=== PATIENT | male | born 1935 | race Caucasian/White ===

== ENCOUNTER 2018-11-25 00:35 | Inpatient (IN) ==
--- NOTE | 2018-11-19 08:10 | EKG Report ---
Test Performed on : 11/19/2018 07:53:45 AM Test Reason : PAT Blood Pressure : / mmHG Vent. Rate : 073 BPM Atrial Rate : 073 BPM P-R Int : 178 ms QRS Dur : 076 ms QT Int : 384 ms P-R-T Axes : 070 -06 051 degrees QTc Int : 423 ms Normal sinus rhythm. Septal infarct , age undetermined Abnormal ECG No previous ECGs available Unconfirmed Result
[2018-11-19 08:12] LABS: URINE SOURCE CLEAN CATCH
[2018-11-19 08:16] LABS: BASO# 0.05 X1000 (0.0-0.2); BASO% 0.6 % (0.0-0.8); BILIRUBIN URINE NEGATIVE (NEGATIVE); BLOOD URINE NEGATIVE (NEGATIVE); COLOR YELLOW; EOS# 0.58 X1000 (0.0-0.7); GLUCOSE URINE NEGATIVE (NEGATIVE); HEMATOCRIT 44.6 % (42.0-52.0); IMM GRAN# 0.02 X1000 (0.0-0.04); IMM GRAN% 0.2 % (0.0-0.5); KETONE URINE NEGATIVE (NEGATIVE); LEUKOCYTES URINE NEGATIVE (NEGATIVE); LYMPH# 1.98 X1000 (1.2-3.4); MCH 28.1 PG (27-31); MCHC 31.4 g/dL (33-37); MCV 89.6 FL (81-99); MONO# 1.14 X1000 (0.11-0.59); MONO% 13.8 % (1.7-9.3); MPV 11.3 FL (7.4-10.4); NEUT# 4.49 X1000 (1.4-6.5); NEUT% 54.4 % (42.2-75.2); NITRITE URINE NEGATIVE (NEGATIVE); PH URINE 6.5; PLT 174 X1000 (130-400); PROTEIN URINE TRACE mg/dL (NEGATIVE); RBC 4.98 XMIL (4.7-6.1); RDW 14.3 % (11.5-14.5); SP GRAVITY URINE 1.018; TURBIDITY URINE CLEAR (CLEAR); UROBILINOGEN URINE NORMAL (NORMAL); WBC 8.26 X1000 (4.8-10.8)
[2018-11-19 08:17] LABS: UR EPITHELIAL CELLS <10 /HPF (<10); URINE BACTERIA NEGATIVE /HPF; URINE RBC <10 /HPF (<10); URINE WBC <10 /HPF (<10)
[2018-11-19 08:23] LABS: INR 0.9; PROTIME 12.9 Seconds (11.0-16.0)
[2018-11-19 08:24] LABS: PTT 27.5 Seconds (22.3-41.8)
[2018-11-19 08:35] LABS: AGAP 9; BUN 19 mg/dL (8-22); CALCIUM 9.8 mg/dL (8.8-10.2); CHLORIDE 102 mmol/L (98-107); COSMO 280; CREATININE 1.1 mg/dL (0.7-1.2); ESTIMATED GFR > 60; GLUCOSE 95 mg/dL (70-104); POTASSIUM 4.7 mmol/L (3.5-5.1); SODIUM 139 mmol/L (136-145); TCO2 28 mmol/L (25-35)
[2018-11-25] MEDS ORDERED: XYLOCAINE-MPF 2% ONE (07:41)
[2018-11-25] MEDS ORDERED: DIPRIVAN 1% ONE (07:41)
[2018-11-25] MEDS ORDERED: REGLAN ONE (09:36)
[2018-11-25] MEDS ORDERED: PEPCID ONE (09:36)
[2018-11-25] MEDS ORDERED: LYRICA ONE (09:36)
[2018-11-25] MEDS ORDERED: CELEBREX ONE (09:36)
[2018-11-25] MEDS ORDERED: COLACE ONE (09:36)
[2018-11-25] MEDS ORDERED: LR 1,000 ML ONE (09:37)
[2018-11-25] MEDS ORDERED: KEFZOL 2 GM/D5W 2 GM/50 ML IVPB ONE (09:37)
[2018-11-25] MEDS ORDERED: TORADOL ONE (10:58)
[2018-11-25] MEDS ORDERED: SODIUM CHLORIDE 0.9% ONE (10:58)
[2018-11-25] MEDS ORDERED: MARCAINE 0.25% PF ONE (10:58)
[2018-11-25] MEDS ORDERED: DURAMORPH ONE (10:58)
[2018-11-25] MEDS ORDERED: CYKLOKAPRON 1,000 MG/NS 1,000 MG/100 ML IVPB ONE (10:58)
[2018-11-25] MEDS ORDERED: EXPAREL 1.3% ONE (10:59)
[2018-11-25] MEDS ORDERED: NEOSPORIN G.U. IRRIGANT ONE (10:59)
[2018-11-25] MEDS ORDERED: ZOFRAN ONE ×2 (11:39→11:41)
[2018-11-25] MEDS ORDERED: DECADRON ONE (11:39)
[2018-11-25] MEDS ORDERED: OFIRMEV 1000 MG/ISOTONIC SOLN 1,000 MG/100 ML BOTTLE ONE ×2 (11:39→12:55)
[2018-11-25 12:14] LABS: URINE SOURCE CATH
[2018-11-25 12:20] LABS: BILIRUBIN URINE NEGATIVE (NEGATIVE); BLOOD URINE NEGATIVE (NEGATIVE); COLOR YELLOW; GLUCOSE URINE NEGATIVE (NEGATIVE); KETONE URINE NEGATIVE (NEGATIVE); LEUKOCYTES URINE NEGATIVE (NEGATIVE); NITRITE URINE NEGATIVE (NEGATIVE); PROTEIN URINE NEGATIVE (NEGATIVE); SP GRAVITY URINE 1.012; TURBIDITY URINE CLEAR (CLEAR); UROBILINOGEN URINE NORMAL (NORMAL)
[2018-11-25 12:27] LABS: UR EPITHELIAL CELLS >10 /HPF (<10); URINE BACTERIA NEGATIVE /HPF; URINE RBC <10 /HPF (<10); URINE WBC <10 /HPF (<10)
[2018-11-25] MEDS ORDERED: EPHEDRINE ONE (12:33)
[2018-11-25 12:49] LABS: URINE SMALL ROUND CELLS RENAL PRESENT
[2018-11-25] MEDS ORDERED: NS 1,000 ML ONE (13:25)
--- NOTE | 2018-11-25 13:39 | OPERATIVE NOTE ---
PROCEDURE DATE: 11/25/2018 PREOPERATIVE DIAGNOSIS: Degenerative joint disease, right hip. POSTOPERATIVE DIAGNOSIS: Degenerative joint disease, right hip. PROCEDURE PERFORMED: Right anterior total hip replacement. SURGEON: Jasper Evans MD. SOUND RANGING CREWMEMBER: Pedro Pollack. Mr Pollack was necessary for proper retraction and manipulation during the case. ANESTHESIA: General. COMPLICATION: None. PROCEDURE IN DETAIL: This 83-year-old male presents for right anterior hip replacement. Risks, benefits, and no guarantees were discussed, and the patient is willing to proceed. He was taken to the operating room and satisfactory anesthesia obtained. He was placed on the [place] table, and the right hip prepped and draped in usual sterile fashion. A time-out was taken to confirm operative site, procedure, and patient. An anterior approach to the right hip was undertaken with an incision starting 1 cm distal and lateral to the anterior superior iliac spine and carried roughly 10 to 12 cm over the anterolateral thigh. Dissection was carried down through the skin and subcutaneous fat to the fascia of the tensor fascia jen. This was split in line with the incision and blunt dissection along the inner membrane of the tensor undertaken down to the anterior hip capsule. Cobra retractors were placed over the superior and inferior aspect of the femoral neck and a femoral neck capsulotomy performed. Prior to resection of the femoral neck, C- arm was used to layne leg lengths with an AP pelvis referencing the lesser trochanters on both hips. With the retractors around the femoral neck, a femoral neck osteotomy was made and the femoral head removed. A very small Cobra retractor was placed directly on the anterior acetabular bone with care taken to place it directly on bone to allow retraction of the anterior structures, as well as visualization of the acetabulum. Sequential reaming up to a 53 reamer was undertaken. A [employer] SELF coated 54 outer diameter cup was then impacted in the acetabulum under fluoroscopic guidance in roughly 45 degrees of abduction and 10 to 15 degrees of anteversion. This had secure press-fit fixation. A 25 length screw was placed in the 12 o'clock position of the cup. A 0 degree 36 mm inner diameter polyethylene bearing was then placed into the cup and the liner cup and cup bone interface checked and noted to be stable. Traction was released off the leg and the leg externally rotated and extended to facilitate broaching of the proximal femur. Sequential broaching using the DePuy Actis broach system was undertaken up to a size 4 stem. This had good axial and rotational stability. Trial neck options revealed the best stability with the high offset neck with a +5 neck length to restore leg length and promote stability. After adequate trialing as well as fluoroscopic visualization of the proposed implant for proper fit and fill, the trial implant was removed. An Actis size 4 collared stem was impacted in the proximal femur with secure axial and rotational stability. A +5, 36 mm ceramic head ball was impacted onto this and the hip reduced. The C-arm was then used to verify denominational of leg lengths as well as proper fit and component geometry of the implants. The stability was assessed by externally rotating the leg up to 70 degrees and extending the hip to the floor without any anterior dislocation. The wound was then copiously irrigated with irrigant. The joint capsule was injected with Exparel for pain management and a Hemovac drain placed. The fascia of the tensor was closed with a running V-LOC, the subcutaneous with 2-0 Vicryl and the skin with skin jenny. Sterile dressings were placed over this, and the patient was recovered from anesthesia and transferred to the recovery room in stable condition. No intraoperative complications were noted. Instrument count and sponge count were correct at the time of closure. cc: Adrien Evans MD
[2018-11-25] MEDS ORDERED: OXY IR PO PRN ×2 (15:30)
[2018-11-25] MEDS ORDERED: ZOFRAN ODT PO PRN (15:30)
[2018-11-25] MEDS ORDERED: ZOFRAN IV PRN (15:30)
[2018-11-25] MEDS ORDERED: MORPHINE IV PRN ×3 (15:30)
--- NOTE | 2018-11-25 17:15 | PROGRESS NOTE ---
DATE: 11/25/2018 SUBJECTIVE: Mr. Lopez is seen status post right anterior hip replacement. He is comfortable at the present time. OBJECTIVE: Vital signs: Stable. Neurological: He is motor and sensory intact and able to extend the knee, flex the hip, flex the knee, and dorsiflex and plantar flex the foot and toes. Skin: The bandage is clean and dry. ASSESSMENT: He is stable at present time. PLAN: We will plan on mobilizing him and transferring him to rehabilitation later this week. cc: Adrien Evans MD
[2018-11-25] MEDS ORDERED: CYKLOKAPRON 1,000 MG in NS 100 ML IV ONE (17:40)
[2018-11-25] MEDS: NS 1,000 ML IV SCH (18:26)
[2018-11-25] MEDS: TYLENOL PO SCH ×2 (18:28→21:03)
[2018-11-25] MEDS: ULTRAM PO SCH ×2 (18:28→21:04)
[2018-11-25] MEDS: KEFZOL 2 GM/D5W 2 GM/50 ML IVPB IV SCH (19:32)
[2018-11-25] MEDS: MYCOSTATIN POWDER TOP SCH (19:45)
[2018-11-25] MEDS: PERIDEX MT SCH (21:03)
[2018-11-25] MEDS: COLACE PO SCH (21:04)
[2018-11-25] MEDS: CELEBREX PO SCH (21:04)
[2018-11-25] MEDS: PRAVACHOL PO SCH (21:04)
[2018-11-25] MEDS: LOPRESSOR PO SCH (21:04)
[2018-11-26] MEDS: ULTRAM PO SCH ×4 (03:24→20:57)
[2018-11-26] MEDS: KEFZOL 2 GM/D5W 2 GM/50 ML IVPB IV SCH (03:25)
[2018-11-26] MEDS: TYLENOL PO SCH ×4 (03:25→20:56)
[2018-11-26] MEDS: NS 1,000 ML IV SCH ×3 (03:25→17:54)
[2018-11-26 05:38] LABS: HEMATOCRIT 37.1 % (42.0-52.0); HEMOGLOBIN 11.4 g/dL (14.0-18.0)
[2018-11-26 05:51] LABS: CALCIUM 8.5 mg/dL (8.8-10.2); CREATININE 1.4 mg/dL (0.7-1.2); POTASSIUM 4.8 mmol/L (3.5-5.1)
--- NOTE | 2018-11-26 08:20 | PROGRESS NOTE ---
DATE: 11/26/2018 SUBJECTIVE DATA: Mr. Lopez is seen on postop day 1 of right total hip arthroplasty. He reports he is doing well. He reports his pain is under control. OBJECTIVE DATA: There is good sensation right lower extremity. There are good pedal pulses. There is good capillary refill. There is negative Homans sign. The patient is able to bend the knee and flex his quadriceps muscles without difficulty. ASSESSMENT: Degenerative joint disease right hip with total hip arthroplasty. PLAN: We will plan on discharging Mr. Lopez Saturday to [facility]. We will check back on him tomorrow to see how he is doing. Dictated by JANELL Pandey for Adrine Evans MD cc: JANELL Pandey MD
[2018-11-26] MEDS ORDERED: PRAVACHOL PO SCH (09:00)
[2018-11-26] MEDS: MYCOSTATIN POWDER TOP SCH ×2 (09:40→20:57)
[2018-11-26] MEDS: PEPCID PO SCH (09:41)
[2018-11-26] MEDS: THERA M PLUS PO SCH (09:41)
[2018-11-26] MEDS: ASPIRIN PO SCH (09:41)
[2018-11-26] MEDS: COLACE PO SCH ×2 (09:41→20:56)
[2018-11-26] MEDS: PERIDEX MT SCH ×2 (09:43→20:56)
[2018-11-26] MEDS: CELEBREX PO SCH ×2 (09:43→20:56)
[2018-11-26] MEDS: LOPRESSOR PO SCH ×2 (13:39→20:58)
--- NOTE | 2018-11-26 18:37 | Diag Imaging Result Doc PS360 ---
CHEST-PORTABLE - 11/26/2018 INDICATION: REHAB PLACEMENT COMPARISON: None FINDINGS: The lungs are clear. Heart size is normal. No pneumothorax or pleural effusion. There are calcified granulomas in the left upper lobe. There are surgical clips in the soft tissues at the left side of the neck. IMPRESSION: Negative exam. Electronically signed by Eddi Wang 11/26/2018 6:34 PM
[2018-11-26] MEDS: PRAVACHOL PO SCH (20:57)
[2018-11-27] MEDS: ULTRAM PO SCH ×4 (04:29→21:08)
[2018-11-27] MEDS: TYLENOL PO SCH ×4 (04:29→21:08)
[2018-11-27 05:56] LABS: HEMATOCRIT 31.2 % (42.0-52.0); HEMOGLOBIN 9.7 g/dL (14.0-18.0)
[2018-11-27] MEDS: ASPIRIN PO SCH (09:09)
[2018-11-27] MEDS: MYCOSTATIN POWDER TOP SCH ×2 (09:10→21:09)
[2018-11-27] MEDS: PERIDEX MT SCH ×2 (09:10→21:09)
[2018-11-27] MEDS: THERA M PLUS PO SCH (09:10)
[2018-11-27] MEDS: COLACE PO SCH ×2 (09:10→21:08)
[2018-11-27] MEDS: PEPCID PO SCH (09:10)
[2018-11-27] MEDS ORDERED: MILK OF MAGNESIA PO PRN (09:12)
[2018-11-27] MEDS: CELEBREX PO SCH ×2 (09:20→21:09)
--- NOTE | 2018-11-27 10:44 | PROGRESS NOTE ---
DATE: 11/27/2018 SUBJECTIVE DATA: Mr. Lopez is on postoperative day 2 of his right total hip replacement. He reports doing well. He reports his pain is under control, and he only has some soreness in that right lower extremity. He reports he is still awaiting bed placement for rehabilitation. OBJECTIVE DATA: There is good sensation of the right lower extremity. There are good pedal pulses. There is good capillary refill. There is negative Mary's sign. There is good range of motion of the knee. There is good range of motion of the hip. There is good strength about the quadriceps muscles. There is good sensation. There is no redness or obvious signs of infection. The bandage is clean and dry. ASSESSMENT: Degenerative joint disease (DJD), right hip, with total hip arthroplasty. PLAN: We will plan on sending Mr. Lopez home tomorrow to rehabilitation. We will check back on him in the morning and get his discharge stuff ready. Dictated by JANELL Pandey for Adrien Evans MD cc: JANELL Pandey MD
[2018-11-27] MEDS: LOPRESSOR PO SCH ×2 (11:46→21:09)
[2018-11-27] MEDS: NS 1,000 ML IV SCH ×2 (14:33→20:58)
[2018-11-27] MEDS: PRAVACHOL PO SCH (21:09)
[2018-11-28] MEDS: TYLENOL PO SCH ×2 (03:20→08:33)
[2018-11-28] MEDS: ULTRAM PO SCH ×3 (03:20→11:22)
[2018-11-28 06:16] LABS: HEMATOCRIT 33.5 % (42.0-52.0); HEMOGLOBIN 10.2 g/dL (14.0-18.0)
[2018-11-28] MEDS ORDERED: FLEET ENEMA PR PRN (07:11)
[2018-11-28] MEDS ORDERED: CITRATE OF MAGNESIA PO ONE (07:13)
[2018-11-28] MEDS: THERA M PLUS PO SCH (08:33)
[2018-11-28] MEDS: ASPIRIN PO SCH (08:33)
[2018-11-28] MEDS: PEPCID PO SCH (08:33)
[2018-11-28] MEDS: COLACE PO SCH (08:34)
[2018-11-28] MEDS: CELEBREX PO SCH (08:34)
[2018-11-28] MEDS: LOPRESSOR PO SCH (08:34)
[2018-11-28] MEDS: PERIDEX MT SCH (08:35)
[2018-11-28] MEDS: MYCOSTATIN POWDER TOP SCH (08:40)
[2018-11-28] MEDS ORDERED: MIRALAX PO SCH (09:00)
--- NOTE | 2018-11-28 10:17 | Diag Imaging Result Doc PS360 ---
KUB ABDOMEN - 11/28/2018 INDICATION: Constipation COMPARISON: None FINDINGS: There is mild constipation of the ascending colon. No bowel obstruction or free air. There is a right hip prosthesis in good position. IMPRESSION: Mild constipation. Electronically signed by Eddi Wang 11/28/2018 10:14 AM
--- NOTE | 2018-11-28 10:18 | DISCHARGE SUMMARY ---
ADMISSION DATE: 11/25/2018 DISCHARGE DATE: 11/28/2018 ADMITTING DIAGNOSIS: Degenerative joint disease of the right hip. DISCHARGE DIAGNOSIS: Degenerative joint disease of the right hip. PRINCIPLE PROCEDURE: A right total hip arthroplasty. PAST MEDICAL HISTORY: High blood pressure and high cholesterol. DISCHARGE MEDICATIONS: Include [place] 10 for pain, aspirin 325 mg twice daily for DVT prophylaxis, MiraLAX for constipation, doxycycline for antibiotic coverage, and his routine home medications. PAST SURGICAL HISTORY: Back and neck surgery and right hip surgery. ALLERGIES: He has no known drug allergies. HOSPITAL COURSE: The patient was taken to the operating room on 11/25/2018. He underwent a right total hip arthroplasty. He tolerated the procedure well. He was transferred to the recovery room. He did well in recovery and was transferred to the surgical floor. Mechanical and DVT prophylaxes were initiated. Routine postoperative antibiotics were administered. The drain was discontinued on postoperative day 2 with about 75 mL of drainage. Physical therapy was initiated. The patient walked approximately 150 feet without difficulty. He was able to spontaneously void. He reported some constipation during his stay. He reports his last bowel movement was Saturday night. He transitioned to oral pain medication. His incision remained clean, dry, and intact during the hospital course. At this time, his abdomen is not distended. It is soft and nontender. There is good range of motion to the right hip. The incision is clean and dry. There is a negative Homans sign. The patient is able to flex his quadriceps muscles without difficulty. There is good pedal pulses. We will obtain an abdominal KUB x-ray to rule out any bowel obstruction. If this is negative, we will discharge him home today on 11/28/2018. DISPOSITION: He will be discharged to rehab at this time. FOLLOWUP: He will follow up when he gets out of rehab with Dr. Evans's office. DISCHARGE INSTRUCTIONS: His instructions will be gone over with at discharge. We also went over these with the family, and all questions were answered. Dictated by JANELL Pandey for Adrien Evans MD cc: JANELL Pandey MD
[2018-11-28] MEDS: NS 1,000 ML IV SCH (11:17)
[2018-11-28 12:33] VITALS: BP 125/72
== END 2018-11-28 13:36 | DRG 470 ==
LOC: SURHOLD 00:35 → 4N 11:51
PROVIDERS: ADMIT Orthopaedic Surgery Adult Reconstructive Orthopaedic Surgery; ATTEND Orthopaedic Surgery Adult Reconstructive Orthopaedic Surgery
CPT/HCPCS: 71010; 71045; 74000; 74018; 76000; 80048; 81001; 85014; 85018; 85025; 85610; 85730; 86850; 86900; 86901; 88304; 88311; 93005; 93010; 94761; 94799; 97110; 97116; 97162; 97530; A9270; C9290; J0131; J0690; J1100; J1885; J2274; J2275; J2405; J7030; J7120; Q9974; S0020

== ENCOUNTER 2018-12-25 11:41 | Inpatient (IN) ==
[2018-12-25] MEDS ORDERED: ZOFRAN IV ONE (13:29)
[2018-12-25] MEDS ORDERED: MORPHINE IV ONE (13:29)
--- NOTE | 2018-12-25 13:34 | PROVIDER DOCUMENTATION ---
This chart was entered by Fabiana Romeo Scribe, acting as scribe for August Puente MD. HPI-Musculoskeletal Pain/Inj - GENERAL Chief Complaint: Hip Pain Stated Complaint: RIGHT HIP PAIN Time Seen by Provider: 12/25/18 12:09 Source: patient - HX OF PRESENT ILLNESS-MUSKULOSKELTAL Nature of Presenting Problem: Patient is a 83 year old male who presents to the ED via EMS with right hip pain. Patient states he thinks he has dislocated his prosthetic hip again. States this episode is the 4th time in 1 week. Denies falling. Quality of Pain: reports: aching Severity in ED: mild Onset/Duration: just prior to arrival Timing: still present Modifying Factors: improves with: nothing Any recent injury?: No Locality of Occurance: Home Similar Symptoms Previously?: Yes Recently seen or treated by another doctor?: Yes - HIP/PELVIS PAIN/INJURY Hip Pain Location: reports: hip (R) Pain Radiation: reports: no radiation Context / Method of Injury: reports: unknown Associated Symptoms: reports: denies symptoms - LOWER EXTREMITY PAIN/INJURY Lower Extremities Pain: hip: right Context / Method of Injury: reports: unknown Associated Symptoms: reports: denies symptoms Review of Systems - Adult - REVIEW OF SYSTEMS - ADULT Constitutional: reports: no symptoms reported. denies: chills, fever, fatique Eyes: reports: no symptoms reported Ears, Nose, Mouth & Throat: reports: no symptoms reported Cardiovascular: reports: no symptoms reported Respiratory: reports: no symptoms reported Gastrointestinal: reports: no symptoms reported. denies: diarrhea, nausea, vomiting Genitourinary: reports: no symptoms reported Musculoskeletal: reports: other (right hip pain). denies: back pain, neck pain Integumentary: reports: no symptoms reported Neurological: reports: no symptoms reported Psychiatric: reports: no symptoms reported Endocrine: reports: no symptoms reported Hematologic/Lymphatic: reports: no symptoms reported Allergic/Immunologic: reports: no symptoms reported All Other Systems: Reviewed and Negative Past History - Adult - PAST MEDICAL HISTORY-ADULT Review of Records: reports: Nursing Assessment Review, Medications Reviewed, Social history reviewed & non-contributory. Major Childhood Illnesses: reports: denies history Cardiovascular: reports: HTN, hyperlipidemia Respiratory: reports: denies history Gastrointestinal: reports: denies history Obstetrical/Gynecological: reports: denies history Genitourinary: reports: denies history Musculoskeletal: reports: denies history Neurological: reports: denies history Psychiatric: reports: denies history Endocrine/Immune: reports: denies history Other Conditions: reports: denies history - PRIOR SURGERIES/PROCEDURES Surgical/Procedure History: reports: recent surgery (November 25, 2017.), reviewed, not pertinent, cholecystectomy, tonsillectomy, joint replacement - IMMUNIZATION STATUS Childhood Immunizations: See Nurse Assessment Flu Vaccine: See Nurse Assessment - FAMILY HISTORY Family History: reviewed, not pertinent - SOCIAL HISTORY Smoking: denies Substance Use: denies Living Situation: family Physical Exam-Injury Related - Physical Exam-Injury Related Initial Vital Signs Reviewed: Yes General Appearance: alert, mild distress. negative: lethargic, slow to respond Respiratory: chest non-tender, lungs clear, normal breath sounds. negative: rhonchi, wheezing Cardiovascular: normal peripheral pulses, regular rate, rhythm. negative: tachycardia, systolic murmur Peripheral Pulses: dorsalis-pedis (R): 2+, dorsalis-pedis (L): 2+ Abdominal Exam: normal bowel sounds, non tender, soft. negative: guarding, rebound Extremity: deformity (right hip), tenderness (right hip), other (decrease ROM to right hip) Integumentary: normal color, warm/dry. negative: cyanosis, ecchymosis, erythema, jaundice Neurologic: grossly normal. negative: aphasia, facial droop Psych/Mental Status: normal mood/affect, oriented x 3. negative: paranoid, tearful Progress - PLAN OF CARE/RESULTS Progress/Plan/Lab Results: Vital Signs - 8 hr 12/25/18 12:41 Temperature 98.7 F Pulse Rate 60 Respiratory Rate 20 Blood Pressure 118/66 O2 Sat by Pulse Oximetry 98 Orders Category Date Time Status HIP 1 VIEW RIGHT [RAD] Stat Exams 12/25/18 13:23 Ordered XRAY PELVIS W/HIP 2-3VW RT [RAD] Stat Exams 12/25/18 13:27 Ordered BASIC METABOLIC PANEL [CHEM] Stat Lab 12/25/18 13:31 Ordered CBC WITH ELECTRONIC DIFF [HEME] Stat Lab 12/25/18 13:31 Ordered PROTIME WITH INR [COAG] Stat Lab 12/25/18 13:31 Ordered PTT [COAG] Stat Lab 12/25/18 13:31 Ordered URINALYSIS W/POSS RFLX CULT [URINALYSIS] Stat Lab 12/25/18 13:28 Uncollected Morphine Med 12/25/18 13:29 Discontinued 2 mg IV NOW ONE Ondansetron [Zofran] Med 12/25/18 13:29 Discontinued 4 mg IV NOW ONE Transfer/Admit Order [TRANSFER] Routine Transfer 12/25/18 13:30 Ordered 1325 - Dr. Puente consulted with Dr. Arenas about the patient. Dr. Arenas states admit patient and put in quick admit orders. - REASSESSMENT Reassessment #1 Time Reassessed: 13:20 Status: unchanged (DR ARENAS ADMITS, ASKS FOR INITIAL ORDERS WRITTEN.) - CONSULTS/PCP/HOSPITALIST Notification #1 *Consult/PCP/Hospitalist*: Dr. Amin Time Discussed: 12:26 Reason/Comments: Dr. Puente consulted with Dr. Amin about patient. Consult Disposition: other (Dr. Amin states he will call back.) #2 Consult: PA for Dr. Amin Time Discussed: 12:57 Reason/Comments: Dr. Puente consulted with Dr. Amin's PA about patient. Consult Disposition: other (states Dr. Evans will consulted on the patient and have hospitalist admit.) #3 Consult: JANELL Liriano for Hospitalist Time Discussed: 12:58 Reason/Comments: Dr. Puente consulted with Deandra about patient. Consult Disposition: other (Deandra states patient is a Dr. Arenas patient.) Departure - Departure Date of Disposition Decision: 12/25/18 Time of Disposition Decision: 12:58 DIAGNOSIS: Hip dislocation, right, Status post total hip replacement, right Disposition: ADMITTED INPATIENT 09 Certified Medical Emergency: Emergent Condition: Stable Referrals and Follow-Ups: Shania Reyes CRNP [Primary Care Provider] - - Critical Care Note This patient required my direct & personal management of CC.: No Attestation - Physician/ GRAHAM Attestation The physician spent face to face time with patient:: Yes Advanced Practice Provider documentation review:: Supervising physician onsite and consulted in the evaluation and care of this patient. The physician did have a face to face encounter with the patient. This chart was documented by the kevin [email or web address], (Fabiana Romeo Scribe) and accurately reflects the services I performed and decisions made by , August Puente MD, as attested by the provider's signature.
[2018-12-25 13:50] LABS: BASO# 0.04 X1000 (0.0-0.2); BASO% 0.5 % (0.0-0.8); EOS# 0.54 X1000 (0.0-0.7); EOS% 7.3 % (0.0-10.0); HEMATOCRIT 40.2 % (42.0-52.0); HEMOGLOBIN 12.3 g/dL (14.0-18.0); LYMPH# 1.45 X1000 (1.2-3.4); LYMPH% 19.5 % (20.5-51.1); MCH 28.2 PG (27-31); MCHC 30.6 g/dL (33-37); MCV 92.2 FL (81-99); MONO# 1.56 X1000 (0.11-0.59); MPV 11.7 FL (7.4-10.4); NEUT# 3.85 X1000 (1.4-6.5); NEUT% 51.7 % (42.2-75.2); PLT 213 X1000 (130-400); RBC 4.36 XMIL (4.7-6.1); RDW 14.8 % (11.5-14.5); WBC 7.44 X1000 (4.8-10.8)
--- NOTE | 2018-12-25 13:52 | ORTHOPAEDICS CONSULTATION ---
DATE: 12/25/2018 CHIEF COMPLAINT: Right hip pain. HISTORY: Mr. Lopez is an 83-year-old male, who presents with a recurrent right hip dislocation. He had a right total hip arthroplasty about a month ago. He was doing well in a rehab facility until 1 week ago. He had a right hip dislocation. Dr. Higgins reduced it under sedation. At the time, the patient had another hip dislocation three days prior, for which Dr. Evans took the patient to the operating room and reduced it under sedation. The patient today states he was getting off the commode and fell back onto his right hip, dislocating his right hip. He is unable to bear weight following the injury. He presented to the emergency department number, and we were asked for further evaluation and treatment. PAST MEDICAL HISTORY, PAST SURGICAL HISTORY, ALLERGIES TO MEDICATIONS: See the admission history and physical. REVIEW OF SYSTEMS: Positive for right hip pain; all others negative. PHYSICAL EXAMINATION: General: This is an elderly male. He is alert, oriented, and cooperative with examination. He is in no acute distress. HEENT: Head is normocephalic, atraumatic. Neck: Supple. Respiratory: Breathing is nonlabored. Abdomen: Nondistended. Musculoskeletal: He has pain with any movement of his right hip. ASSESSMENT: Right total hip arthroplasty dislocation. PLANS: We plan to have the patient admitted. He is to undergo surgery next Saturday with Dr. Evans. We will have him admitted now for pain control, and to prevent any further dislocations. Dictated by AKIRA Castillo for Adrien Evans MD cc: AKIRA Castillo MD
[2018-12-25 13:53] LABS: CALCIUM 9.4 mg/dL (8.8-10.2); CREATININE 1.3 mg/dL (0.7-1.2); POTASSIUM 4.7 mmol/L (3.5-5.1)
--- NOTE | 2018-12-25 13:56 | Diag Imaging Result Doc PS360 ---
EXAM: XRAY PELVIS W/HIP 2-3VW RT 12/25/2018 HISTORY: hip dislocation TECHNIQUE: AP pelvis and right hip two views COMMENT: There is a dislocated prosthetic hip similar in appearance to the previous examination of 12/23/2018. IMPRESSION: Persistent prosthetic right hip dislocation. Electronically signed by Norman Morgan 12/25/2018 1:53 PM
[2018-12-25 14:43] LABS: URINE SOURCE CLEAN CATCH
[2018-12-25 14:47] LABS: BILIRUBIN URINE NEGATIVE (NEGATIVE); BLOOD URINE NEGATIVE (NEGATIVE); COLOR YELLOW; GLUCOSE URINE NEGATIVE (NEGATIVE); KETONE URINE NEGATIVE (NEGATIVE); LEUKOCYTES URINE NEGATIVE (NEGATIVE); NITRITE URINE NEGATIVE (NEGATIVE); PROTEIN URINE NEGATIVE (NEGATIVE); SP GRAVITY URINE 1.016; TURBIDITY URINE CLEAR (CLEAR); UROBILINOGEN URINE 2 mg/dL (NORMAL)
[2018-12-25 14:48] LABS: UR EPITHELIAL CELLS <10 /HPF (<10); URINE BACTERIA NEGATIVE /HPF; URINE RBC <10 /HPF (<10); URINE WBC <10 /HPF (<10)
[2018-12-25 14:48] LABS: INR 0.99; PROTIME 13.9 Seconds (11.0-16.0)
[2018-12-25 14:49] LABS: PTT 29.5 Seconds (22.3-41.8)
[2018-12-25] MEDS ORDERED: TYLENOL PO PRN (15:13)
[2018-12-25] MEDS ORDERED: ZOFRAN IV PRN (15:13)
[2018-12-25] MEDS ORDERED: NS 1,000 ML IV ONE (15:13)
[2018-12-25] MEDS: MORPHINE IV PRN ×3 (15:32→20:03)
[2018-12-25] MEDS ORDERED: LABETALOL IV PRN (17:55)
[2018-12-25] MEDS ORDERED: NORCO-10 PO PRN (17:57)
[2018-12-25] MEDS ORDERED: LOVENOX SUBQ SCH (18:00)
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
--- NOTE | 2018-12-25 19:31 | ORTHOPAEDICS PROGRESS NOTE ---
DATE: 12/25/2018 SUBJECTIVE DATA: Mr. Lopez reports that his hip has dislocated again today. He had presented to the emergency department at [facility] with right hip dislocation. This would be the 3rd time it has dislocated within the past 2 weeks. He reports the 1st time that he dislocated the hip, he was getting up off the toilet and ran into the hand rail. He then slipped back down to the toilet, and his right hip popped out. He reports his pain is a 6/10 at this time. OBJECTIVE DATA: There is good sensation, right lower extremity. There is shortening of the right lower extremity with internal rotation. There are good pedal pulses. There is negative Homans sign. ASSESSMENT: Dislocation, right hip. PLAN: We will plan a revision of the right total hip arthroplasty tomorrow after lunch. The patient agrees with this plan. We have gone over the risks and benefits of the surgery with the patient, and he agrees. Dictated by JANELL Pandey for Adrien Evans MD cc: JANELL Pandey MD Amit V. Vora, MD
[2018-12-26] MEDS: MORPHINE IV PRN ×2 (05:39→07:51)
[2018-12-26] MEDS: THERA M PLUS PO SCH (09:47)
[2018-12-26] MEDS: NORVASC PO SCH (09:47)
[2018-12-26] MEDS ORDERED: FENTANYL ONE (11:48)
[2018-12-26] MEDS ORDERED: AMIDATE ONE ×2 (11:48→13:45)
[2018-12-26] MEDS ORDERED: TORADOL ONE (12:17)
[2018-12-26] MEDS ORDERED: MARCAINE 0.25% PF ONE (12:17)
[2018-12-26] MEDS ORDERED: CYKLOKAPRON 1,000 MG/NS 1,000 MG/100 ML IVPB ONE (12:17)
[2018-12-26] MEDS ORDERED: SODIUM CHLORIDE 0.9% ONE (12:17)
[2018-12-26] MEDS ORDERED: KEFZOL 2 GM/D5W 2 GM/50 ML IVPB ONE (12:17)
[2018-12-26] MEDS ORDERED: DURAMORPH ONE (12:17)
[2018-12-26] MEDS ORDERED: NEOSPORIN G.U. IRRIGANT ONE (12:19)
[2018-12-26] MEDS ORDERED: EXPAREL 1.3% ONE (12:19)
[2018-12-26] MEDS ORDERED: MORPHINE ONE (13:20)
[2018-12-26] MEDS ORDERED: XYLOCAINE-MPF 2% ONE (13:45)
[2018-12-26] MEDS ORDERED: DECADRON ONE (13:45)
[2018-12-26] MEDS ORDERED: ZOFRAN ONE (13:45)
[2018-12-26] MEDS ORDERED: NEO-SYNEPHRINE ONE (13:45)
[2018-12-26] MEDS ORDERED: OFIRMEV 1000 MG/ISOTONIC SOLN 1,000 MG/100 ML BOTTLE ONE (13:45)
[2018-12-26] MEDS ORDERED: APRESOLINE ONE (13:45)
[2018-12-26] MEDS ORDERED: NORCURON ONE (13:45)
[2018-12-26] MEDS ORDERED: STERILE WATER INJ. ONE (13:45)
[2018-12-26] MEDS ORDERED: QUELICIN (DOSE) ONE (13:45)
[2018-12-26] MEDS ORDERED: ROBINUL ONE (14:05)
[2018-12-26] MEDS ORDERED: NEOSTIGMINE ONE (14:05)
--- NOTE | 2018-12-26 14:28 | OPERATIVE NOTE ---
PROCEDURE DATE: 12/26/2018 PREOPERATIVE DIAGNOSIS: Unstable posteriorly right anterior hip replacement. POSTOP DIAGNOSIS: Unstable posteriorly right anterior hip replacement. PROCEDURE: Revision acetabular component right hip. SURGEON: Jasper Evans MD. PARKING PATROLLER: JANELL Pandey. Mr. Pollack was necessary for proper retraction and manipulation of the patient. ANESTHESIA: General. COMPLICATION: None. PROCEDURE IN DETAIL: 83-year-old male presents for reduction of posterior instability of total hip replacement. Risks, benefits, and no guarantees were discussed and the patient is willing to proceed. He was taken to the operating room and satisfactory anesthesia obtained. The patient was transferred to the [place] table after closed reduction of the hip and both lower extremities placed in leg rivero. The right hip was prepped and draped in usual sterile fashion. A time-out was taken to confirm operative site, procedure, and patient. The previous anterior incision was opened after prep and drape, and dissection carried down to the hip joint with care taken to preserve neurovascular bundles. The hip joint was noted to be reduced at that time. Careful dissection around the cup was undertaken. The hip was dislocated and the femoral head implant removed from the stem. The stem was inspected and noted to have good version and secure fixation. The neck of the stem was dislocated posteriorly to allow exposure of the acetabulum. The acetabular shell 0 degree liner was removed with a screw. The acetabular cup was inspected and noted to be fully ingrowth. The handle of the impactor the cup was secured and the cup taken through range of motion without any instability of the cup pelvis interface. Good ingrowth of the cup was noted. Due to ingrowth of the cup, a decision was made to go with a constrained liner as the cup appeared to be stable and able to withstand the additional stress of the constrained liner. The C-arm was used to verify accurate cup position, which revealed roughly 45 degrees of abduction and 10 to 15 degrees of anteversion. A constrained liner was impacted into the cup and the +5 neck 32 head reduced into the cup. The constraint ring was then seated over the polyethylene bearing of the constrained liner to lock it together. The C-arm was used to verify accurate reduction. The wound was irrigated and closed in layers over a drain. The deep fascia was closed with a running V-Loc, the subcutaneous with 2-0 Vicryl and the skin with skin jenny. Sterile dressings completed the closure and the patient was recovered from anesthesia and transferred to the recovery room. Instrument count and sponge count was correct at the time of closure. No complications were noted. cc: MD Manjinder Xiao MD
[2018-12-26 14:50] LABS: URINE SOURCE CATH
[2018-12-26 14:55] LABS: BILIRUBIN URINE NEGATIVE (NEGATIVE); BLOOD URINE NEGATIVE (NEGATIVE); COLOR YELLOW; GLUCOSE URINE NEGATIVE (NEGATIVE); KETONE URINE 10 mg/dL (NEGATIVE); LEUKOCYTES URINE NEGATIVE (NEGATIVE); NITRITE URINE NEGATIVE (NEGATIVE); PH URINE 6.5; PROTEIN URINE NEGATIVE (NEGATIVE); SP GRAVITY URINE 1.002; TURBIDITY URINE CLEAR (CLEAR); UROBILINOGEN URINE NORMAL (NORMAL)
[2018-12-26 14:57] LABS: UR EPITHELIAL CELLS <10 /HPF (<10); URINE BACTERIA NEGATIVE /HPF; URINE RBC <10 /HPF (<10); URINE WBC <10 /HPF (<10)
[2018-12-26] MEDS ORDERED: OXY IR PO PRN ×2 (16:30)
[2018-12-26] MEDS ORDERED: ZOFRAN ODT PO PRN (16:30)
[2018-12-26] MEDS ORDERED: ZOFRAN IV PRN (16:30)
[2018-12-26] MEDS ORDERED: MORPHINE IV PRN ×3 (16:30)
[2018-12-26] MEDS: NS 1,000 ML IV SCH (17:35)
--- NOTE | 2018-12-26 17:51 | ORTHOPAEDICS PROGRESS NOTE ---
DATE: 12/26/2018 Mr. Lopez is seen status post hip revision. He is afebrile with stable vital signs. He is motor and sensory intact with good quad and hamstring function as well as ankle dorsi and plantar flexion. Incisions clean and dry and a dry bandage. His vital signs are stable. He is awake and alert and comfortable currently. We will plan on mobilizing him tomorrow. Appears to be stable postoperatively at the present time. cc: MD Manjinder Xiao MD
[2018-12-26] MEDS: KEFZOL 2 GM/D5W 2 GM/50 ML IVPB IV SCH (22:49)
[2018-12-26] MEDS: ULTRAM PO SCH (22:49)
[2018-12-26] MEDS: NORCO-10 PO PRN (22:49)
[2018-12-26] MEDS: PERIDEX MT SCH (22:50)
[2018-12-26] MEDS: PRAVACHOL PO SCH (22:50)
[2018-12-26] MEDS: CELEBREX PO SCH (22:51)
[2018-12-26] MEDS: TYLENOL PO SCH (22:55)
[2018-12-26] MEDS: COLACE PO SCH (22:55)
[2018-12-27] MEDS: ULTRAM PO SCH ×5 (04:48→23:03)
[2018-12-27] MEDS: TYLENOL PO SCH ×5 (04:48→23:02)
[2018-12-27] MEDS: KEFZOL 2 GM/D5W 2 GM/50 ML IVPB IV SCH (04:48)
[2018-12-27 06:08] LABS: HEMATOCRIT 34.8 % (42.0-52.0); HEMOGLOBIN 10.8 g/dL (14.0-18.0)
[2018-12-27 06:37] LABS: AGAP 7; BUN 14 mg/dL (8-22); CALCIUM 8.2 mg/dL (8.8-10.2); CHLORIDE 102 mmol/L (98-107); COSMO 275; CREATININE 1.1 mg/dL (0.7-1.2); ESTIMATED GFR > 60; GLUCOSE 136 mg/dL (70-104); SODIUM 136 mmol/L (136-145); TCO2 27 mmol/L (25-35)
[2018-12-27] MEDS: NS 1,000 ML IV SCH ×2 (07:00→18:46)
[2018-12-27] MEDS: PERIDEX MT SCH ×2 (09:12→21:28)
[2018-12-27] MEDS: ASPIRIN PO SCH (09:12)
[2018-12-27] MEDS: NORVASC PO SCH (09:13)
[2018-12-27] MEDS: THERA M PLUS PO SCH (09:13)
[2018-12-27] MEDS: PEPCID PO SCH (09:13)
[2018-12-27] MEDS: CELEBREX PO SCH ×2 (09:13→21:28)
[2018-12-27] MEDS: COLACE PO SCH ×2 (09:13→21:27)
--- NOTE | 2018-12-27 11:52 | PROGRESS NOTE ---
DATE: 12/27/2018 SUBJECTIVE: Patient is stable and smiling this morning. Says he feels okay. OBJECTIVE: Vital Signs: Afebrile. Vital signs stable. CV: RRR without murmur. Lungs: Clear. Abdomen: Soft. Active bowel sounds. Mild distention. Extremities: No calf tenderness, cords or edema. Neurologic: Nonfocal. LABS: Hemoglobin 10.8 down from 12.3 on 12/25. Sodium 136, potassium 5.0, chloride 102, CO2 27. BUN 14, creatinine 1.1, glucose 136, calcium 8.2. ASSESSMENT: 1. Postoperative day #1 status post revision right hip replacement. 2. Hypertension. 3. Hyperlipidemia. PLAN: Continue routine postop care. He has docusate sodium ordered regularly. He is on prophylaxis of DVT with Lovenox per Dr. Evans. He has been placed on Norvasc [address] Arenas. His heart rate is very slightly elevated with marginal BP's at time. Will resume half the dose of his normal Lopressor he is on at home. Dr. Arenas may be transitioning him over to the Norvasc from the Lopressor, but at this time I will give him a slightly lower dose of Lopressor with the Norvasc, allowing Dr. Arenas to make his decision in a couple of days when he is back. cc: MD Manjinder Reaves MD
--- NOTE | 2018-12-27 16:11 | ORTHOPAEDICS PROGRESS NOTE ---
DATE: 12/27/2018 Mr. Lopez is seen today status post revision of his hip replacement. He is afebrile with stable vital signs. He appears to be motor and sensory intact. He has already mobilized down the hallway. We will plan on mobilizing him today and discontinuing all his lines and drains. We will need to get him a lift chair for home use due to his weakness. We will plan on keeping him in hospital today and possibly home Saturday. cc: MD Manjinder Xiao MD
[2018-12-27] MEDS: LOPRESSOR PO SCH ×2 (17:27→21:28)
[2018-12-27] MEDS: LOVENOX SUBQ SCH (17:29)
[2018-12-27] MEDS: NORCO-10 PO PRN (21:28)
[2018-12-27] MEDS: PRAVACHOL PO SCH (21:28)
[2018-12-28] MEDS: TYLENOL PO SCH ×5 (04:23→23:53)
[2018-12-28] MEDS: ULTRAM PO SCH ×5 (04:23→23:53)
[2018-12-28 06:03] LABS: HEMATOCRIT 31.3 % (42.0-52.0); HEMOGLOBIN 9.5 g/dL (14.0-18.0)
[2018-12-28] MEDS: NORVASC PO SCH (09:44)
[2018-12-28] MEDS: PERIDEX MT SCH ×2 (09:44→20:41)
[2018-12-28] MEDS: PEPCID PO SCH (09:44)
[2018-12-28] MEDS: LOPRESSOR PO SCH ×2 (09:44→20:41)
[2018-12-28] MEDS: ASPIRIN PO SCH (09:44)
[2018-12-28] MEDS: THERA M PLUS PO SCH (09:44)
[2018-12-28] MEDS: CELEBREX PO SCH ×2 (09:44→20:41)
[2018-12-28] MEDS: COLACE PO SCH ×2 (09:44→20:41)
--- NOTE | 2018-12-28 10:50 | ORTHOPAEDICS PROGRESS NOTE ---
DATE: 12/28/2018 SUBJECTIVE: Mr. Lopez is seen status post hip revision. At the present time, he is afebrile with stable vital signs. He is doing well. We will plan on discharge back to inpatient rehab tomorrow for continued convalescent care. He seems to be stable at the present time without any immediate complication. cc: MD Manjinder Xiao MD
--- NOTE | 2018-12-28 12:04 | PROGRESS NOTE ---
DATE: 12/28/2018 SUBJECTIVE: Patient is smiling. He is still doing well this morning. He has his incentive spirometer laying by him there and says he has been using it. OBJECTIVE: Afebrile. Vital signs are stable.Cardiovascular: RRR. Lungs: Cannot rule out a rare wheeze, left greater than right, but overall good air movement. Abdomen is soft, active bowel sounds. Nondistended. Extremities: No calf tenderness, cords, or edema. DIAGNOSTIC STUDIES: Hemoglobin 9.5. ASSESSMENT: 1. Postoperative day #2 status post revision, right hip. 2. Hypertension. 3. Hyperlipidemia. PLAN: Continue Norvasc and low-dose Lopressor. He is on Lovenox DVT prophylaxis. Encouraged him in incentive spirometry usage. O2 saturations are 93% to 98%. We will get rid of his IV fluids as he is eating well. cc: MD Manjinder Reaves MD
[2018-12-28] MEDS: ALBUTEROL NEB INH SCH ×2 (15:45→20:05)
[2018-12-28] MEDS: LOVENOX SUBQ SCH (17:06)
[2018-12-28] MEDS: PRAVACHOL PO SCH (20:41)
[2018-12-28] MEDS: NORCO-10 PO PRN (20:41)
[2018-12-29] MEDS: ALBUTEROL NEB INH SCH ×4 (03:40→20:15)
[2018-12-29] MEDS: ULTRAM PO SCH ×3 (04:52→17:47)
[2018-12-29] MEDS: TYLENOL PO SCH ×3 (04:52→17:48)
[2018-12-29 05:54] LABS: HEMOGLOBIN 9.2 g/dL (14.0-18.0)
--- NOTE | 2018-12-29 08:59 | ORTHOPAEDICS PROGRESS NOTE ---
DATE: 12/29/2018 SUBJECTIVE: Mr. Lopez is seen today status post hip revision. OBJECTIVE: He is afebrile with stable vital signs. His incision is clean and dry. He can be discharged to rehab today. We will follow up with him on an outpatient basis. [place] can be removed in 10 days. He will need to maintain posterior hip precautions. He can be transferred back to the rehab center today. cc: MD Manjinder Xiao MD
--- NOTE | 2018-12-29 09:40 | Diag Imaging Result Doc PS360 ---
EXAM: CHEST-PORTABLE HISTORY: rehab placement TECHNIQUE: AP chest single view COMPARISON: 11/26/2018 FINDINGS: The lungs are well expanded. The heart is not enlarged. The vessels are not distended. There are no infiltrates. No effusion identified. There is a granuloma in the mid left lung. IMPRESSION: Negative exam. Electronically signed by David Ram 12/29/2018 9:38 AM
[2018-12-29] MEDS: LOPRESSOR PO SCH ×2 (12:32→21:01)
[2018-12-29] MEDS: NORVASC PO SCH (12:32)
[2018-12-29] MEDS: PEPCID PO SCH (12:32)
[2018-12-29] MEDS: COLACE PO SCH ×2 (12:32→21:00)
[2018-12-29] MEDS: PERIDEX MT SCH ×2 (12:32→21:00)
[2018-12-29] MEDS: CELEBREX PO SCH ×2 (12:32→21:00)
[2018-12-29] MEDS: ASPIRIN PO SCH (12:33)
[2018-12-29] MEDS: THERA M PLUS PO SCH (12:33)
[2018-12-29] MEDS: MIRALAX PO PRN (12:38)
[2018-12-29] MEDS: LOVENOX SUBQ SCH (17:48)
[2018-12-29] MEDS: PRAVACHOL PO SCH (21:01)
[2018-12-30] MEDS: TYLENOL PO SCH ×3 (00:40→11:32)
[2018-12-30] MEDS: ULTRAM PO SCH ×3 (00:40→11:32)
[2018-12-30] MEDS: ALBUTEROL NEB INH SCH ×2 (03:05→08:02)
[2018-12-30] MEDS: COLACE PO SCH (08:49)
[2018-12-30] MEDS: NORVASC PO SCH (08:49)
[2018-12-30] MEDS: CELEBREX PO SCH (08:49)
[2018-12-30] MEDS: THERA M PLUS PO SCH (08:49)
[2018-12-30] MEDS: ASPIRIN PO SCH (08:49)
[2018-12-30] MEDS: MIRALAX PO PRN (08:49)
[2018-12-30] MEDS: PEPCID PO SCH (08:49)
[2018-12-30] MEDS: LOPRESSOR PO SCH (08:50)
[2018-12-30] MEDS: PERIDEX MT SCH (08:50)
[2018-12-30] MEDS ORDERED: DULCOLAX PR PRN (08:57)
[2018-12-30] MEDS ORDERED: DULCOLAX PR ONE (09:19)
--- NOTE | 2018-12-30 09:20 | PROGRESS NOTE ---
DATE: 12/30/2018 SUBJECTIVE: Mr. Lopez has some constipation. He is being given laxatives. We will order some Dulcolax suppository also p.r.n., and he will be transferred to rehab. His vital signs are stable. He is going to follow up in rehab. cc: Manjinder Arenas MD
[2018-12-30 10:39] VITALS: BP 109/58
--- NOTE | 2018-12-30 11:00 | DISCHARGE SUMMARY ---
ADMISSION DATE: 12/26/2018 DISCHARGE DATE: 12/30/2018 HOSPITAL COURSE: Mr. Lopez, who is an 83-year-old, white gentleman who had a right hip arthroplasty, had recurrent dislocation of the prosthetic hip and was seen by Dr. Evans who operated him on the next day. Postoperative course was unremarkable except for mild constipation. He has been getting some physical therapy, which he will continue at [facility]. 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 cc: Manjinder Arenas MD
== END 2018-12-30 12:12 | DRG 497 ==
LOC: SUPCPDRO → ED 11:41 → SURHOLD 11:41 → EDIPHOLD 12-26 05:20 → 4N 12-26 06:46
PROVIDERS: ADMIT Internal Medicine; ATTEND Internal Medicine
CPT/HCPCS: 71010; 71045; 73502; 76000; 80048; 80053; 81001; 85014; 85018; 85025; 85610; 85730; 87070; 87075; 87205; 93005; 94640; 94760; 94761; 94799; 96361; 96374; 96375; 96376; 97116; 97161; 97530; 99285; A9270; C9290; J0131; J0330; J0360; J0690; J1100; J1170; J1650; J1885; J2270; J2274; J2275; J2370; J2405; J3010; J7030; Q9974; S0020

== ENCOUNTER 2019-05-08 11:36 | Inpatient (IN) ==
[2019-05-08] MEDS ORDERED: CELEBREX ONE (12:34)
[2019-05-08] MEDS ORDERED: COLACE ONE (12:34)
[2019-05-08] MEDS ORDERED: REGLAN ONE (12:34)
[2019-05-08] MEDS ORDERED: LYRICA ONE (12:34)
[2019-05-08] MEDS ORDERED: PEPCID ONE (12:34)
[2019-05-08] MEDS ORDERED: KEFZOL 1 GM/D5W 2 GM/100 ML IVPB ONE (12:34)
[2019-05-08] MEDS ORDERED: LR 1,000 ML ONE (12:35)
[2019-05-08] MEDS ORDERED: VANCOMYCIN ONE (12:42)
[2019-05-08] MEDS ORDERED: NEOSPORIN G.U. IRRIGANT ONE (12:42)
[2019-05-08] MEDS ORDERED: TOBRAMYCIN POWDER MISC ONE (12:45)
[2019-05-08] MEDS ORDERED: DIPRIVAN 1% ONE (13:00)
[2019-05-08] MEDS ORDERED: XYLOCAINE-MPF 2% ONE (13:01)
[2019-05-08] MEDS ORDERED: TORADOL ONE (13:21)
[2019-05-08] MEDS ORDERED: ROBINUL ONE (13:23)
[2019-05-08] MEDS ORDERED: EPHEDRINE ONE (13:23)
[2019-05-08] MEDS ORDERED: NS 1,000 ML ONE (14:18)
--- NOTE | 2019-05-08 14:55 | OPERATIVE NOTE ---
PROCEDURE DATE: 05/08/2019 PREOPERATIVE DIAGNOSIS: Right anterior hip replacement infection. POSTOPERATIVE DIAGNOSIS: Right anterior hip replacement infection. PROCEDURE: Debridement, irrigation, placement of antibiotic beads, and drain, right hip. SURGEON: Jasper Evans MD PARALEGAL SUPERVISOR: JANELL Pandey. Mr. Pollack was necessary for proper manipulation and retraction of the leg. ANESTHESIA: General. COMPLICATION: None. PROCEDURE IN DETAIL: An 83-year-old male presents for I D and salvage of the implant of the right hip. He is roughly 3 months status post hip surgery with a subacute infection. Risks, benefits, and no guarantees, including persistent infection, were discussed and he is willing to proceed. He was taken the operating room and placed supine on the operating table. After anesthesia, the right hip was prepped and draped in the usual sterile fashion. A time-out was taken to confirm operative site, procedure, and patient. The anterior hip was incised about the previous incision and a purulent serous sanguinous fluid encountered. This was cultured for both aerobic and anaerobic cultures as well as Gram stain. The dissection was carried down to the hip capsule and the femoral neck interface of the implant and the acetabulum. Then, 1.5 L of irrigant was pulsatile lavaged through this. Afterwards any fibrinous material was debrided with a curette or rongeur. Care was taken to protect the neurovascular bundles anteriorly and posteriorly. The wound was then irrigated with Bactisure of roughly 1 L. This was then flushed out with 1.5 L of irrigant. A combination of vancomycin and tobramycin beads were then packed into the wound about the hip joint all the way up to the subcutaneous. A Hemovac drain was placed at the joint level and brought out through a separate stab wound. The incision was closed with a Vicryl deep suture and skin jenny on the skin edges. Sterile dressings completed the closure and the patient was recovered from anesthesia and transferred to the recovery room in stable condition. No intraoperative complications were noted. Instrument count and sponge count was correct at the time of closure. cc: Adrien Evans MD
[2019-05-08 16:01] LABS: BASO# 0.05 X1000 (0.0-0.2); BASO% 0.7 % (0.0-0.8); EOS# 0.34 X1000 (0.0-0.7); EOS% 4.4 % (0.0-10.0); HEMATOCRIT 35.4 % (42.0-52.0); HEMOGLOBIN 10.8 g/dL (14.0-18.0); IMM GRAN# 0.02 X1000 (0.0-0.04); IMM GRAN% 0.3 % (0.0-0.5); LYMPH# 2.06 X1000 (1.2-3.4); LYMPH% 26.9 % (20.5-51.1); MCH 24.9 PG (27-31); MCHC 30.5 g/dL (33-37); MCV 81.8 FL (81-99); MONO# 1.06 X1000 (0.11-0.59); MONO% 13.8 % (1.7-9.3); MPV 10.1 FL (7.4-10.4); NEUT# 4.13 X1000 (1.4-6.5); NEUT% 53.9 % (42.2-75.2); PLT 325 X1000 (130-400); RBC 4.33 XMIL (4.7-6.1); RDW 16.5 % (11.5-14.5); WBC 7.66 X1000 (4.8-10.8)
[2019-05-08] MEDS ORDERED: ZOFRAN IV PRN (16:14)
[2019-05-08] MEDS ORDERED: MORPHINE IV PRN (16:14)
[2019-05-08] MEDS ORDERED: OXY IR PO PRN (16:14)
[2019-05-08] MEDS ORDERED: MILK OF MAGNESIA PO PRN (16:14)
[2019-05-08] MEDS ORDERED: HALDOL IV PRN (16:15)
--- NOTE | 2019-05-08 16:18 | INFECTIOUS DISEASE CONSULT REP ---
DATE: 05/08/2019 CONCLUSIONS: The patient is status post surgery on an infected right total hip arthroplasty. RECOMMENDATIONS: Pending culture results, I have placed the patient in a combination of daptomycin and cefepime. I have also ordered for today a CBC and a comprehensive metabolic profile. I told the patient's that while I am giving the patient daptomycin, I will stop the patient's cholesterol medicine because the two medications can interact to cause increased risk of muscle toxicity. DISCUSSION: The patient had a right total hip arthroplasty. He had to have the original one taken out and replaced with another one. Following that, he developed increasing pain and swelling of the hip. He underwent surgery today by Dr. Evans. Dr. Evans's operative report indicates that he found purulent fluid in the joint, for which he has sent it for culture. DIAGNOSTIC STUDIES: There are no lab studies back at this time. REVIEW OF SYSTEMS: This was unable to be obtained from the patient. It was obtained from his . Eyes and Ears: The patient has decreased vision and hearing. Respiratory: He does not cough or get short of breath. Cardiac: He does not complain of chest pain or palpitations. GI: He does not have any nausea, vomiting, or diarrhea. : He passes his urine without difficulty. Bones, joints, and muscles: See present illness. Endocrine: The patient does not have diabetes or thyroid problem. PREVIOUS HOSPITALIZATIONS AND OPERATIONS: He has had two right total hip arthroplasty surgeries as mentioned above. He has had removal of a throat nodule. He has also had a cholecystectomy. MEDICAL DISEASES: Positive for hypertension and hyperlipidemia. INFECTIOUS DISEASE HISTORY: Negative for pneumonia and urinary tract infection to the best of the patient's 's recollection. FAMILY HISTORY: Positive for cancer. SOCIAL HISTORY: The patient is . [place] He does not smoke, drink alcoholic beverages, or abuse drugs. 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 He does not have any pets at home. ALLERGIES: The patient does not have any allergies. HOME MEDICATIONS: Include Norvasc, Lopressor, multivitamins, Pravachol, and Septra. PHYSICAL EXAMINATION: Vital Signs: Temperature is 97.5, pulse 69, respirations 20, blood pressure 140/76. Height/Weight: Patient is 5 feet 10 inches tall, weighs 185 pounds. General: This is a fairly healthy appearing, elderly male. He had just returned from surgery and he is very hard of hearing. Head, Eyes, Ears, Nose, and Throat: As mentioned above, the patient has decreased hearing. He did not have any white patches on his tongue. He did not have any drainage from his nose or ears. Neck: Did not appear to have any pain when his neck was moved. Lungs: Clear to auscultation. Cardiovascular: Heart rate is regular. Abdomen: Soft and not tender. Extremities: The patient has a large dressing on the right hip with a drainage tube in place. Neurologic: Patient is awake. He has decreased hearing. He can move his extremities. He does not have a tremor. Integument: No rash noted. Thank you for the consult. cc: MD Adrien Laughlin MD
[2019-05-08 16:22] LABS: ALB/GLOB RATIO 0.8; ALBUMIN 3.5 g/dL (3.5-5.0); CALCIUM 9.2 mg/dL (8.8-10.2); CREATININE 1.5 mg/dL (0.7-1.2); POTASSIUM 5.3 mmol/L (3.5-5.1); TOTAL BILIRUBIN 0.3 mg/dL (0.20-1.00); TOTAL PROTEIN 7.7 g/dL (6.3-8.3)
[2019-05-08] MEDS: TYLENOL PO SCH (18:03)
[2019-05-08] MEDS: NS 1,000 ML IV SCH (18:03)
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
[2019-05-08] MEDS ORDERED: PRAVACHOL PO SCH (21:00)
[2019-05-08] MEDS: CUBICIN 500 MG in NS 100 ML IV SCH (21:33)
[2019-05-08] MEDS: LOPRESSOR PO SCH (21:34)
[2019-05-08] MEDS: SEPTRA DS PO SCH (21:34)
[2019-05-08] MEDS: COLACE PO SCH (21:34)
[2019-05-08] MEDS: PERIDEX MT SCH (21:40)
[2019-05-08] MEDS: MAXIPIME 2 GM in NS 100 ML IV SCH (22:41)
[2019-05-09] MEDS: NS 1,000 ML IV SCH ×2 (05:09→18:11)
[2019-05-09] MEDS: TYLENOL PO SCH ×3 (05:25→18:09)
[2019-05-09 06:00] LABS: HEMATOCRIT 32.7 % (42.0-52.0); HEMOGLOBIN 9.8 g/dL (14.0-18.0)
--- NOTE | 2019-05-09 09:42 | PROGRESS NOTE ---
DATE: 05/09/2019 VITAL SIGNS: Stable with temperature 97.6 degrees, heart rate 59, respirations 16, blood pressure 177/75, O2 saturation 100% on room air. LABORATORY DATA: Sodium 134, that was yesterday. Potassium 5.3, BUN 15, and creatinine 1.5. This morning, hemoglobin is 9.8 and hematocrit 32.7. SUBJECTIVE: The patient is up sitting in a chair. He does not complain of any pain. He states he is hungry and was able to tolerate his liquids fine this morning. Diet will be increased to 2 g sodium. cc: MD Adrien Solares MD
[2019-05-09] MEDS: PERIDEX MT SCH ×2 (11:11→22:51)
[2019-05-09] MEDS: NORVASC PO SCH (11:11)
[2019-05-09] MEDS: MAXIPIME 2 GM in NS 100 ML IV SCH ×2 (11:11→22:45)
[2019-05-09] MEDS: SEPTRA DS PO SCH ×2 (11:11→22:49)
[2019-05-09] MEDS: LOPRESSOR PO SCH ×2 (11:11→22:50)
[2019-05-09] MEDS: THERA M PLUS PO SCH (11:11)
[2019-05-09] MEDS: FERROUS SULFATE PO SCH (11:12)
--- NOTE | 2019-05-09 12:49 | ORTHOPAEDICS PROGRESS NOTE ---
DATE: 05/09/2019 SUBJECTIVE: Mr. Loepz is seen status post debridement and irrigation of his hip. He is afebrile with stable vital signs. The bandage is clean and dry. His drain is functioning. The Gram stain showed no organisms yet. Cultures were pending. He has been seen by Infectious Disease, as well as his medical doctor. We will continue IV antibiotics. We will plan on discontinuing the drain and changing the bandage tomorrow. We will consider discharge either tomorrow or Saturday pending cultures and need for IV access. cc: Adrien Evans MD
[2019-05-09] MEDS: COLACE PO SCH (22:50)
[2019-05-10] MEDS: CUBICIN 500 MG in NS 100 ML IV SCH ×2 (00:24→20:25)
[2019-05-10] MEDS: TYLENOL PO SCH ×3 (05:31→17:20)
[2019-05-10 05:55] LABS: HEMATOCRIT 29.2 % (42.0-52.0); HEMOGLOBIN 8.9 g/dL (14.0-18.0)
[2019-05-10] MEDS: NS 1,000 ML IV SCH ×2 (07:58→22:34)
[2019-05-10] MEDS: MAXIPIME 2 GM in NS 100 ML IV SCH (08:00)
[2019-05-10] MEDS: PERIDEX MT SCH ×2 (08:02→20:25)
[2019-05-10] MEDS: NORVASC PO SCH (08:03)
[2019-05-10] MEDS: FERROUS SULFATE PO SCH (08:03)
[2019-05-10] MEDS: THERA M PLUS PO SCH (08:03)
[2019-05-10] MEDS: SEPTRA DS PO SCH ×2 (08:03→20:25)
[2019-05-10] MEDS: ASPIRIN EC PO SCH (08:03)
[2019-05-10] MEDS: LOPRESSOR PO SCH ×2 (08:03→20:25)
--- NOTE | 2019-05-10 09:41 | ORTHOPAEDICS PROGRESS NOTE ---
DATE: 05/10/2019 SUBJECTIVE: Mr. Lopez is status post incision and drainage of the hip. His cultures are growing a gram-positive cocci. Sensitivities not yet available. His bandage is clean and dry. We will discontinue the bandage and remove the drain today. We will consider discharge home on appropriate antibiotics pending culture results per Dr. Smith in the near future. cc: Adrien Evans MD
--- NOTE | 2019-05-10 10:34 | PROGRESS NOTE ---
DATE: 05/10/2019 Vital signs stable with temperature 97.9 degrees, heart rate 73, respirations 18, blood pressure 132/72, O2 saturation on room air of 100%. Patient is ambulating and denies pain on his surgical site. He is eating fairly well. Chest is clear. Culture of his wound grew staphylococcus. Sensitivities are pending. He had some constipation this morning and was given some milk of magnesia. Plan is to hopefully go home early in the week, depending on culture results. cc: MD Adrien Solares MD
[2019-05-10] MEDS: COLACE PO SCH (20:25)
--- NOTE | 2019-05-11 07:36 | ORTHOPAEDICS PROGRESS NOTE ---
DATE: 05/11/2019 Mr. Lopez is seen status post I and D of the hip. The incision had some mild drainage. There was no purulent discharge. His cultures are still pending but it does appear he is growing a gram- positive cocci. I will defer to Dr. Smith for antibiotic choice as well as if he needs an IV port for home IV antibiotics. We will plan on possible discharge home either tomorrow or Saturday, pending Dr. Smith's recommendations for IV antibiotics and the need for an IV port. Currently, he can mobilize as tolerated. cc: Adrien Evans MD
[2019-05-11 07:53] LABS: INR 1.1; PROTIME 14.4 Seconds (11.0-16.0)
[2019-05-11 08:22] LABS: MPV 10.3 FL (7.4-10.4)
[2019-05-11] MEDS: THERA M PLUS PO SCH (08:28)
[2019-05-11] MEDS: FERROUS SULFATE PO SCH (08:28)
[2019-05-11] MEDS: KEFZOL 2 GM/D5W 2 GM/50 ML IVPB IV SCH (08:29)
[2019-05-11] MEDS: LOPRESSOR PO SCH ×2 (08:29→21:55)
[2019-05-11] MEDS: SEPTRA DS PO SCH ×2 (08:29→21:56)
[2019-05-11] MEDS: NORVASC PO SCH (08:29)
[2019-05-11] MEDS: PERIDEX MT SCH ×2 (08:29→21:55)
[2019-05-11] MEDS: TYLENOL PO SCH (08:29)
--- NOTE | 2019-05-11 09:48 | PROGRESS NOTE ---
DATE: 05/11/2019 Mr. Lopez was admitted with an abscess around the right hip joint where he had surgery at least twice. His culture grows Staphylococcus aureus, sensitive to vancomycin as well as clindamycin and sulfa drugs. He is already on sulfa drugs and cefazolin. We will let Dr. Smith decide if he needs vancomycin IV or not. Overall condition is stable. Lungs clear. Heart sounds are normal. Vital signs are stable. We will continue the current management. cc: MD Adrien Sher MD
[2019-05-11] MEDS ORDERED: NS 250 ML ONE (11:07)
[2019-05-11] MEDS: NS 1,000 ML IV SCH (12:18)
--- NOTE | 2019-05-11 17:26 | INFECTIOUS DISEASE PROGRESS NO ---
DATE: 05/11/2019 PRESENT ILLNESS: The patient has an oxacillin sensitive Staph aureus infection of his right total hip arthroplasty. MEDICATIONS: The patient is receiving Ancef 2 g IV every 8 hours. PHYSICAL EXAM: Vital Signs: Temperature is 98.4 degrees, pulse 81, respirations 16, blood pressure 161/83. General: This is a somewhat ill-appearing elderly male. He is in no acute distress. Head, eyes, ears, nose, and throat: He has decreased hearing. He can see near objects. Patient does not have any white patches in his mouth. Neck: No pain with movement. Lungs: Clear to auscultation. Cardiovascular: Heart rate is regular. Abdomen: Soft and nontender. Extremities: I removed the dressing from the patient's right hip. The dressing is intact. There was no active drainage when I took off the dressing. Neurologic: The patient is awake. He has decreased hearing. He can move his extremities. He does not have a tremor. Integument: No rash noted. LAB AND X-RAY: There is no new radiographic study. The patient's hemoglobin is 9 and the hematocrit is 30. There is no other new lab for today. ASSESSMENT AND PLAN: Patient has an oxacillin sensitive Staph aureus infection of his right total hip arthroplasty. The plan is to continue with IV Ancef to be given through a PICC for a total of 6 weeks. When I am done with the 6 weeks of treatment the patient will be put on Keflex 500 mg p.o. every 12 hours on an indefinite basis in order to suppress any remaining organisms on the patient's total hip arthroplasty. COMORBIDITIES: He is elderly and he has had 3 separate surgeries on the right hip. cc: MD Adrien Laughlin MD
[2019-05-11] MEDS: COLACE PO SCH (21:55)
[2019-05-12] MEDS: TYLENOL PO SCH ×3 (00:11→10:10)
[2019-05-12] MEDS: KEFZOL 2 GM/D5W 2 GM/50 ML IVPB IV SCH ×3 (00:11→10:09)
[2019-05-12] MEDS: NS 1,000 ML IV SCH ×2 (00:16→12:59)
[2019-05-12 05:55] LABS: BASO# 0.04 X1000 (0.0-0.2); BASO% 0.4 % (0.0-0.8); EOS% 5.6 % (0.0-10.0); HEMATOCRIT 30.6 % (42.0-52.0); HEMOGLOBIN 9.5 g/dL (14.0-18.0); IMM GRAN# 0.02 X1000 (0.0-0.04); IMM GRAN% 0.2 % (0.0-0.5); LYMPH# 2.19 X1000 (1.2-3.4); LYMPH% 24.4 % (20.5-51.1); MCH 25.1 PG (27-31); MONO# 1.47 X1000 (0.11-0.59); MONO% 16.4 % (1.7-9.3); MPV 10.3 FL (7.4-10.4); NEUT# 4.76 X1000 (1.4-6.5); PLT 296 X1000 (130-400); RBC 3.78 XMIL (4.7-6.1); RDW 16.8 % (11.5-14.5); WBC 8.98 X1000 (4.8-10.8)
--- NOTE | 2019-05-12 09:29 | PROGRESS NOTE ---
DATE: 05/12/2019 Mr. Lopez is getting Septra DS and IV cefazolin, which is Kefzol 2 grams every 8 hours for his right hip abscess. Overall condition is unchanged. He has Staph aureus isolated. -5 cc: MD Adrien Sher MD
[2019-05-12] MEDS: LOPRESSOR PO SCH (10:08)
[2019-05-12] MEDS: ASPIRIN EC PO SCH (10:08)
[2019-05-12] MEDS: PERIDEX MT SCH (10:08)
[2019-05-12] MEDS: THERA M PLUS PO SCH (10:08)
[2019-05-12] MEDS: NORVASC PO SCH (10:08)
[2019-05-12] MEDS: SEPTRA DS PO SCH (10:09)
[2019-05-12] MEDS: FERROUS SULFATE PO SCH (10:09)
[2019-05-12 11:42] VITALS: BP 148/79
--- NOTE | 2019-05-12 13:44 | ORTHOPAEDICS PROGRESS NOTE ---
DATE: 05/12/2019 SUBJECTIVE DATA: Mr. lopez is seen for his status post right hip replacement with postop infection. He is states he has currently been up walking with physical therapy with his walker. The states that she will need some education on how to change his bandages at home. Mr. Arias states he does have some drainage coming out of his dressings at this time. OBJECTIVE DATA: General Examination: The bandages are soaked with serosanguineous fluid. There is good sensation to the right lower extremity. There is good range of motion about the knee and hip at this time. Jenny are intact. There is no active redness around the site at this time. Vital signs are stable. LABORATORY: Hemoglobin 9.5, hematocrit 30.6, platelets are 296, white blood cells 8.98. INR 1.1. Creatinine is 1.1. ASSESSMENT: Staphylococcus aureus infection of the right hip post right total hip arthroplasty. PLAN: Plan on sending Mr. Lopez home today. He will follow up with infectious disease outpatient. We will get his family some education on changing in his bandages from nursing staff. He will need to follow up with Dr. Evans in about roughly 10 days to have his jenny removed. We will see how he is doing then. Dictated by JANELL Pandey for Adrien Evans MD cc: JANELL Pandey MD
[2019-05-12] MEDS ORDERED: CUBICIN 500 MG in NS 100 ML IV SCH (14:00)
--- NOTE | 2019-05-12 14:42 | INFECTIOUS DISEASE PROGRESS NO ---
DATE: 05/12/2019 SUBJECTIVE: The patient does not have coverage for Ancef treatment. Therefore, the patient is being changed to have daptomycin 500 mg IV daily for 40 days. The patient will be coming to the outpatient clinic to get his antibiotics. I have written up a sheet for the patient to get daptomycin 500 mg IV daily. Every Saturday he will have a dressing change on his PICC and also the lab will be drawn which consists of CBC with a differential, creatinine and CK. I have requested that the patient see me in the office in approximately 3 weeks and then again another 3 weeks at which time the PICC will be removed and the patient will be put on long-term oral therapy, most likely with Keflex 500 mg p.o. every 12 hours. I told the patient and his not to take his cholesterol medicine while he is getting daptomycin, but once the daptomycin is finished he can restart his cholesterol medicine. Some of the side effects of daptomycin, including rash, diarrhea and muscle toxicity, have been explained to the patient and his , who agree with treatment. I also told the patient and that if the patient starts having muscle aching, to call my office and let us know. cc: MD Adrien Laughlin MD MTDD
--- NOTE | 2019-05-13 12:42 | DISCHARGE SUMMARY ---
ADMISSION DATE: 05/08/2019 DISCHARGE DATE: 05/12/2019 Mr. Lopez was admitted with an abscess in the right hip. I D was performed by DR. Evans. He was placed on Septra DS, and later on he was placed on IV Kefzol [address] Smith and he needed to continue the Kefzol which he did not have coverage at home or at the alf hence they decided to give daptomycin 5 mg IV daily for 40 days. He would come as an outpatient and get the daptomycin on daily basis. FINAL DIAGNOSIS: 1. Abscess in the right hip. 2. History of cyst in the right hip area. He will be seen in the office on a p.r.n. basis. cc: MD Adrien Sher MD
== END 2019-05-12 14:56 | disposition home or self-care (01) | DRG 481 ==
LOC: 4N 11:36 → OR 11:36 → OBSVTOIN 13:34 → 4N 05-09 13:52
PROVIDERS: ADMIT Orthopaedic Surgery Adult Reconstructive Orthopaedic Surgery; ATTEND Orthopaedic Surgery Adult Reconstructive Orthopaedic Surgery